=== PATIENT | female | born 1985 | race Caucasian/White ===

== ENCOUNTER 2021-08-25 17:26 | Inpatient (IN) ==
[2021-08-25 20:03] LABS: Amphetamine Screen,Urine Negative ng/mL (Cutoff=1000); Barbiturate Screen,Urine Negative ng/mL (Cutoff=200); Benzodiazepines Screen,Urine Negative ng/mL (Cutoff=200); Cannabinoid Screen,Urine Positive ng/mL (Cutoff = 50); Cocaine Screen,Urine Negative ng/mL (Cutoff= 300); Opiate Screen,Urine Negative ng/mL (Cutoff=300); Phencyclidine Screen,Urine Negative ng/mL (Cutoff=25)
[2021-08-25 20:07] LABS: Bilirubin,Urine Negative (Negative); Blood,Urine Negative (Negative); Clarity,Urine Clear (Clear); Color,Urine Yellow (Yellow); Glucose,Urine (UA) Normal (Normal); Hyaline Casts,Urine Few per lpf (None Seen); Ketones,Urine 40 mg/dL (Negative); Leukocyte Esterase,Urine Negative (Negative); Mucus,Urine Few per lpf (None-Few); Nitrite,Urine Negative (Negative); Protein,Urine 50 mg/dL (Neg-Trace); RBC,Urine 0-3 per hpf (0-3); Specific Gravity,Urine 1.028 (1.010-1.025); Squamous Epithelial Cell,Urine Few per hpf (None-Few); Urobilinogen,Urine Normal (Normal); WBC,Urine 0-3 per hpf (0-3)
[2021-08-25] MEDS ORDERED: Haloperidol Lactate 5 MG/ML VIAL IM ONE ×2 (21:37→21:45)
[2021-08-25 22:57] LABS: Influenza A PCR Negative (Negative); Influenza B PCR Negative (Negative); Resp. Syncytial Virus PCR Negative (Negative)
[2021-08-25 23:00] LABS: SARS-CoV-2 by PCR (In House) Negative (Negative)
[2021-08-26] MEDS ORDERED: hydrOXYzine pamoate 25 MG CAPSULE PO STA (04:15)
[2021-08-26] MEDS: OLANZapine 5 MG TAB.RAPDIS PO SCH ×2 (04:23→20:33)
[2021-08-26] MEDS ORDERED: Acetaminophen 325 MG TABLET PO PRN (04:41)
[2021-08-26] MEDS ORDERED: Mag Hydrox/Al Hydrox/Simeth 30 ML UDC PO PRN (04:41)
[2021-08-26] MEDS ORDERED: haloperidoL 5 MG TABLET PO PRN (04:41)
[2021-08-26] MEDS ORDERED: *HR* LORazepam 2 MG/ML VIAL IM PRN (04:41)
[2021-08-26] MEDS ORDERED: Ibuprofen 400 MG TABLET PO PRN (04:41)
[2021-08-26] MEDS ORDERED: QUEtiapine Fumarate 25 MG TABLET PO PRN (04:41)
[2021-08-26] MEDS ORDERED: Haloperidol Lactate 5 MG/ML VIAL IM PRN (04:41)
[2021-08-26] MEDS ORDERED: MOM Conc 10 ML UD.LIQ PO PRN (04:41)
[2021-08-26] MEDS ORDERED: *HR* LORazepam 1 MG TABLET PO PRN (04:41)
[2021-08-26] MEDS: hydrOXYzine pamoate 25 MG CAPSULE PO PRN (20:33)
[2021-08-26] MEDS: ARIPiprazole 2 MG TABLET PO SCH (20:33)
[2021-08-26] MEDS ORDERED: RisperiDONE-M 1 MG TAB.RAPDIS PO SCH (21:00)
[2021-08-27 20:22] VITALS: TEMP 98.6
[2021-08-27] MEDS: ARIPiprazole 2 MG TABLET PO SCH (20:37)
[2021-08-28] MEDS: hydrOXYzine pamoate 25 MG CAPSULE PO PRN (01:00)
[2021-08-28 08:51] VITALS: BP 154/94; PULSE 115; O2SAT 97
== END 2021-08-28 14:55 | disposition home or self-care (01) | DRG 751 ==
LOC: EMEROOARM 17:26 → 1ANU 08-26 04:32
PROVIDERS: ADMIT Psychiatry & Neurology Psychiatry; ATTEND Psychiatry & Neurology Psychiatry